=== PATIENT | male | born 1990 | race Caucasian/White ===

== ENCOUNTER 2019-11-15 11:21 | Emergency (ER) | payer OTHER ==
[2019-11-15 11:33] VITALS: RESP 18; TEMP 98.1
[2019-11-15] MEDS ORDERED: IBUPROFEN 600 MG TAB PO STA (11:57)
[2019-11-15] MEDS ORDERED: CYCLOBENZAPRINE 5 MG TAB PO STA (11:57)
[2019-11-15] MEDS ORDERED: CYCLOBENZAPRINE 10MG STARTER 3 TAB BTL PO STA (12:46)
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
[2019-11-15 13:09] VITALS: BP 144/90; PULSE 81
== END 2019-11-15 13:20 | disposition home or self-care (01) ==
LOC: EC 11:21
DX: S29.012A Strain of muscle and tendon of back wall of thorax, initial encounter (principal); M62.838 Other muscle spasm; Z87.891 Personal history of nicotine dependence; X58.XXXA Exposure to other specified factors, initial encounter
CPT/HCPCS: 99284